=== PATIENT | female | born 2000 | race Caucasian/White ===

== ENCOUNTER 2025-09-04 18:23 | Emergency (ER) | payer BC ==
--- NOTE | 2025-09-04 18:26 | ERPHSYRPT ---
- History of Present Illness Time Seen by Provider: 09/04/25 18:26 Source: patient, family Exam Limitations: no limitations Physician History: This is a 25-year-old white female patient who presents to the emergency department with pain in the left side of her posterior neck. Patient has not used any intervention today. There was no injury. The patient is 12 weeks . Timing/Duration: today Severity: mild (Moderate) Modifying Factors: Improves With: movement (Worsens) Associated Symptoms: denies symptoms Allergies/Adverse Reactions: No Known Drug Allergies Allergy (Unverified 05/06/25 08:17) Home Medications: lamoTRIgine [Subvenite] 150 mg PO HS 05/06/25 [History] Hx Tetanus, Diphtheria Vaccination/Date Given: Yes Hx Influenza Vaccination/Date Given: No Hx Pneumococcal Vaccination/Date Given: No Travel Risk - International Travel Have you traveled outside of the country in past 3 weeks: No - Emerging Infectious Disease Are you exhibiting symptoms associated with any current EIDs: Yes Symptoms: Abdominal Pain, Vomitting - Review of Systems Constitutional: No Symptoms Eyes: No Symptoms Ears, Nose, & Throat: No Symptoms Respiratory: No Symptoms Cardiac: No Symptoms Abdominal/Gastrointestinal: No Symptoms Genitourinary Symptoms: No Symptoms Musculoskeletal: Neck Pain (Left side in the distribution trapezius muscle posterior) Skin: No Symptoms Neurological: No Symptoms Psychological: No Symptoms Endocrine: No Symptoms Hematologic/Lymphatic: No Symptoms Immunological/Allergic: No Symptoms All Other Systems: Reviewed and Negative - Past Medical History Pertinent Past Medical History: Yes Endocrine Medical History: Hypoglycemia Musculoskeletal History: Other Psycho-Social History: Anxiety, Depression, Other Other Medical History: bipolar. herniated disc L4 or L5 - Past Surgical History Past Surgical History: No - Female History Hx Last Menstrual Period: 02/11/25 - Social History Smoking Status: Never smoker How long have you smoked: 9 years Exposure to second hand smoke: No Drug Use: none - Social Determinants of Health Will the patient participate in the screening: Declined to provide - Nursing Vital Signs Nursing Vital Signs: Initial Vital Signs Temperature 98.3 F 09/04/25 18:37 Pulse Rate 90 09/04/25 18:37 Respiratory Rate 16 09/04/25 18:37 Blood Pressure 114/67 09/04/25 18:37 O2 Sat by Pulse Oximetry 97 09/04/25 18:37 Pain Scale Pain Intensity 5 - Physical Exam General Appearance: no apparent distress, alert, anxiety Eye Exam: PERRL/EOMI, eyes nml inspection Ears, Nose, Throat Exam: normal ENT inspection, moist mucous membranes Neck Exam: normal inspection, supple, full range of motion, other (Pain is in the distribution of the trapezius muscle. No evidence of infection/cellulitis. No evidence of fluid collection subcutaneously.), No meningismus, No midline tenderness Respiratory Exam: normal breath sounds, lungs clear, airway intact, No chest tenderness, No respiratory distress Cardiovascular Exam: regular rate/rhythm, normal heart sounds, normal peripheral pulses Gastrointestinal/Abdomen Exam: No tenderness Pelvic Exam: not done Rectal Exam: not done Back Exam: normal inspection, normal range of motion, No CVA tenderness, No vertebral tenderness Extremity Exam: normal inspection, normal range of motion, pelvis stable Neurologic Exam: alert, oriented x 3, cooperative, health information technologist II-XII nml as tested, normal mood/affect, nml cerebellar function, nml station & gait, sensation nml Skin Exam: normal color, warm, dry Lymphatic Exam: No adenopathy SpO2 Interpretation: normal O2 Delivery: Room Air - Course Nursing assessment & vital signs reviewed: Yes - Progress Progress: unchanged, pain not gone completely, re-examined Progress Note: 09/04/25 19:09 My medical decision making and the assignment of low complexity of this patient's medical issue today is based on review of the patient's past medical history, reviewed patient's medication list, reviewed patient drug allergy list, history of present illness and physical findings on examination. The workup in this patient does not necessitate laboratory radiographic studies. Differential diagnosis includes was not limited to muscle spasm, cervical strain, myalgia, trapezius muscle strain The following interventions for this 12-week patient includes massage of the area, alternating ice and heat to the site, stretching exercises, Tylenol and, Epocrates states that lidocaine topical patch may be used during . 09/04/25 19:11 Counseled pt/family regarding: diagnosis, need for follow-up Medical Desision Making - Independent Historian Additional History obtained from: Spouse - Diagnostic Testing Diagnostic test were ordered, analyzed, and reviewed by me: No - Risk of complications Low Risk: Low risk of morbidity from additional dx testing or treatment - Departure Departure Disposition: Home Clinical Impression: Trapezius muscle strain Condition: Stable Critical Care Time: No Referrals: MASONGABRIELA ONEIL, MD [Primary Care Provider, [facility]] - Follow up/PCP as directed Additional Instructions: Use Tylenol 650 mg orally every 4 hours while awake. Perform trapezius muscle stretching exercises. Local massage. Alternate ice and heat to the tender site 3-4 times a day after heat application. Do not apply heat or cold directly to the skin. May use [id number] lidocaine patch. Asked the pharmacist for recommendations.
[2025-09-04 18:41] VITALS: RESP 16; TEMP 98.3
[2025-09-04 19:16] VITALS: BP 109/64; PULSE 85; O2SAT 99
[2025-09-04] MEDS ORDERED: TYLENOL 325 MG ONE (19:19)
[2025-09-04] MEDS: TYLENOL 325 MG PO ONE (19:19)
== END 2025-09-04 19:36 | disposition home or self-care (01) ==
LOC: ED 18:23
DX: S16.1XXA Strain of muscle, fascia and tendon at neck level, initial encounter (principal); Z79.899 Other long term (current) drug therapy; Z33.1 Pregnant state, incidental